=== PATIENT | male | born 1950 | race Caucasian/White ===

== ENCOUNTER → 2020-04-20 14:36 | Outpatient (CLI) | payer MEDICARE, OTHER, SELFPAY ==
[2020-04-20 17:00] LABS: COVID19 -Nasal RAPID Negative (Negative)
== END ==
PROVIDERS: PCP Family Medicine; Visit Provider Physician Assistant
DX: Z01.812 Encounter for preprocedural laboratory examination (principal); Z20.828 Contact with and (suspected) exposure to other viral communicable diseases
CPT/HCPCS: 87635; C9803

== ENCOUNTER 2020-04-22 10:04 | Day surgery (SDC) | payer MEDICARE, OTHER, SELFPAY ==
--- NOTE | 2020-04-22 | PATH_ITS ---
[facility] Accession Number: [id number] . 01 Material submitted: . PART A: esophagus - ESOPHAGEAL BIOPSIES PART B: colon - ASCENDING COLON POLYP PART C: colon - TRANSVERSE COLON POLYP PART D: rectum - RECTAL POLYP . 01 Clinical history: . A: R/O MOSCOSO'S B: POLYP X3 . 02 Diagnosis: A. Esophagus, Biopsies: Squamocolumnar junctional mucosa with specialized intestinal metaplasia, consistent with Moscoso's esophagus. Negative for dysplasia and malignancy. . B. Ascending Colon, Polyp x3, Biopsy: Tubular adenoma in three of four fragments. Benign lymphoid aggregate in one fragment. . C. Transverse Colon, Polyp, Biopsy: Tubular adenoma. . D. Rectum, Polyp, Biopsy: Hyperplastic polyp. [facility] 04/29/2020 1406 Local . 02 Electronically signed: . Stephanie Seay MD, Pathologist NPI- [id number] . 01 Gross description: . Part A: ESOPHAGEAL BIOPSIES: Received in formalin are 5 fragment(s) of bynum, soft tissue measuring 0.3 x 0.2 x 0.2 cm to 0.1 x 0.1 x 0.1 cm submitted entirely in 1 cassette(s) Part B: ASCENDING COLON POLYP: Received in formalin are 3 fragment(s) of bynum, soft tissue measuring 0.5 x 0.4 x 0.1 cm to 0.3 x 0.3 x 0.3 cm submitted entirely in 1 cassette(s) Part C: TRANSVERSE COLON POLYP: Received in formalin are 3 fragment(s) of bynum, soft tissue measuring 0.3 x 0.2 x 0.1 cm to 0.2 x 0.2 x 0.1 cm submitted entirely in 1 cassette(s) Part D: RECTAL POLYP: Received in formalin is 1 fragment(s) of bynum, soft tissue measuring 0.4 x 0.3 x 0.1 cm submitted entirely in 1 cassette(s) /QBJ 04/23/2020 0819 Local . 02 Microscopic: . A. An AB/PAS stain was performed to evaluate for intestinal metaplasia and is positive. The control stain showed appropriate reactivity. . 02 Pathologist provided ICD-10: K22.70 . 02 CPT . 133368, 925366, 505000, [id number], [id number] Performed at: 01 [facility] [address] [id number] [address] Persaud MD Phone: [phone] Performed at: 02 [facility] [address] [place] [id number] MD Stephanie Seay MD Phone: [phone]
[2020-04-22 10:32] VITALS: BP 116/75; PULSE 68; RESP 14; TEMP 36.6; O2SAT 98; BMI 26.6
[2020-04-22] MEDS: SODIUM CHLORIDE 0.9% 1,000 ML 70 ML IV (10:32)
[2020-04-22] MEDS: LIDOCAINE 4% SOLN 50 ML 20 ML TOP (11:40)
--- NOTE | 2020-04-22 11:40 | PM.HP.1 ---
History of Present Illness History of Present Illness Date Patient Seen: 04/22/20 Time Patient Seen: 11:30 Chief complaint: DX EGD/COLONOSCOPY Narrative: Patient is a very pleasant 69-year-old male who presented for EGD and colonoscopy. Was last evaluated last week for history of possible Scanlon's esophagus, though we do not have the pathology available for review, and personal history colon polyps. Has been 5 years since his last colonoscopy. Patient History Medical History Abn find-abdominal area Asthma Difficulty hearing Esophageal dysphagia GERD (gastroesophageal reflux disease) History of colon polyps Hyperlipidemia Neck pain Ringing in ears Weight loss Surgical History History of appendectomy History of colonoscopy History of esophagogastroduodenoscopy (EGD) History of hernia repair Family & Social History Social History: household members spouse Tobacco & Substance use: Smoking Status Former smoker alcohol intake current alcohol intake frequency 0-2 drinks per day Substance Use Type does not use Meds Home Medications and Allergies Home Medications Medication Instructions Recorded Confirmed Type aspirin 81 mg PO DAILY 04/22/20 04/22/20 History cholecalciferol (vitamin D3) 50 mcg PO DAILY 04/22/20 04/22/20 History [Vitamin D3] multivitamin 1 tab PO DAILY 04/22/20 04/22/20 History omeprazole 20 mg PO DAILY 04/22/20 04/22/20 History simvastatin 10 mg PO DAILY 04/22/20 04/22/20 History turmeric root extract 1,500 mg PO DAILY 04/22/20 04/22/20 History valacyclovir 1,000 mg PO DAILY 04/22/20 04/22/20 History vitamin F14-vjuza acid 1 tab PO DAILY 04/22/20 04/22/20 History Allergies Allergy/AdvReac Type Severity Reaction Status Date / Time No Known Drug Allergies Allergy Verified 04/22/20 09:56 Review of Systems Review of Systems ROS: Yes All systems reviewed with the patient and are negative except as otherwise documented Exam Vital Signs (past 8 hours): - 04/22/20 10:32 Temperature 97.8 F Pulse Rate 68 Respiratory Rate 14 Blood Pressure 116/75 Pulse Oximetry 98 Oxygen Delivery Method Room Air Const General: cooperative, healthy appearing, comfortable, well developed and well groomed Nutritional Appearance: average body habitus Orientation: alert, awake and oriented x3 HENMT Head: normocephalic and atraumatic Cardio Rate: regular rate Rhythm: regular rhythm Heart Sounds: S1 normal and S2 normal GI Palpation: soft Auscultation: normal bowel sounds Extrem Right lower extremity: no edema Left lower extremity: no edema Assessment & Plan Assessment & Plan narrative: 1. Heartburn, personal history of possible Scanlon's esophagus 2. History of colon polyps EGD and colonoscopy today, further recommendations to follow
[2020-04-22] MEDS: MIDAZOLAM 5 MG/5 ML VIAL IV (11:48)
[2020-04-22] MEDS: fentaNYL 250 MCG/5 ML INJ IV (11:58)
--- NOTE | 2020-04-22 12:10 | P.OP.ENDO_ITS ---
Operative Date/Time/Diagnoses Date of procedure: 04/22/20 Time of procedure: 11:43 Procedure Notes Procedure in detail: Surgeon: Missy Tobin DO Procedure: Esophagogastroduodenoscopy with biopsy and colonoscopy with polypectomy Preoperative diagnosis: 1. Heartburn, possible history of Scanlon's esophagus 2. Personal history of colon polyps Postoperative diagnosis: 1. LA-a esophagitis, biopsy rule out Scanlon's esophagus 2. Three ascending colon polyps 2-3 mm 3. Transverse colon polyp 3 mm 4. Rectal polyp 2 mm 5. Scattered sigmoid and descending colon diverticulosis 6. Grade 1 internal hemorrhoids Medications: Conscious sedation using a total of 5 mg IV of Midazolam and 150 mcg IV of Fentanyl (total for both procedures) Preanesthesia Assessment An H and P was performed/updated and the Px?s ASA class is 2. The procedure was discussed in detail with the patient. The potential risks and complications including infection, bleeding, missed lesions, perforation, need for surgery in case of perforation, prolonged hospital stay, and were explained. A brief question and answer period was allotted and once all questions were answered, informed consent was obtained. The patient was brought back to the procedure room and placed on standard monitoring. The patient?s vital signs were monitored continuously throughout the entire procedure. Prior to starting, a timeout was performed to confirm the patient?s identity, allergies, medications, and procedure. Procedure in detail The patient was placed in left lateral decubitus position and a bite block was inserted. The tip of the upper endoscope was placed into the mouth and advanced without difficulty under direct visualization into the esophagus. Esophagus: LA-A esophagitis, biopsied to rule out Scanlon's esophagus at the GE junction Stomach: Normal appearing gastric mucosa Normal appearing stomach on retroflexion Duodenum: Normal-appearing duodenal mucosa After the upper endoscopy, preparations were made for the colonoscopy. Once adequate sedation was obtained a CHARLES was performed. The digital rectal examination did not reveal any palpable lesions. The tip of the colonoscope was placed in the anal canal and advanced without difficulty all the way to the ce cum which was identified by the appendiceal orifice and the ileocecal valve. Three polyps were found in the ascending colon measuring 2-3 mm in size and removed with Jumbo forceps One 3 mm, found in the transverse colon and removed with Jumbo forceps One 2 mm polyp found in the rectum and removed with Jumbo forceps Scattered diverticulosis in the sigmoid and descending colon Grade 1 internal hemorrhoids noted on retroflexion The patient tolerated the procedure well and will be brought back to the recovery area to be discharged once criteria are met. The prep was judged to be good/excellent and adequate to identify polyps less than 5 mm. The withdrawal time was 9 min. The total physician intraservice time was 26min. Complications There were no complications and estimated blood loss was minimal. Recommendations Resume previous diet Continue outpatient medications Follow-up pathology results Repeat colonoscopy will be determined after pathology results are reviewed Follow-up at our office as needed An emergency contact number was given to the patient for any complications related to the procedure
[2020-04-22 12:15] VITALS: BP 108/66; PULSE 66; RESP 15; TEMP 36.3; O2SAT 96
[2020-04-22 12:20] VITALS: BP 100/64; PULSE 64; RESP 11; TEMP 36.3; O2SAT 94
[2020-04-22 12:25] VITALS: BP 98/65; PULSE 71; RESP 15; TEMP 36.6; O2SAT 96
[2020-04-22 12:30] VITALS: BP 118/77; PULSE 65; RESP 15; TEMP 36.1; O2SAT 96
[2020-04-22 12:41] VITALS: BP 112/76; PULSE 67; RESP 14; TEMP 36.3; O2SAT 96
== END 2020-04-22 12:50 | disposition home or self-care (01) ==
PROVIDERS: PCP Family Medicine; Referring Provider Student in an Organized Health Care Education/Training Program; Visit Provider Student in an Organized Health Care Education/Training Program
PROC: 0DJ08ZZ Inspection of Upper Intestinal Tract, Via Natural or Artificial Opening Endoscopic (ICD-10-PCS; CPT 43235; principal; 2020-04-22 11:00)
PROC: 0DJD8ZZ Inspection of Lower Intestinal Tract, Via Natural or Artificial Opening Endoscopic (ICD-10-PCS; CPT 45378; 2020-04-22 11:00)
DX: Z12.11 Encounter for screening for malignant neoplasm of colon (principal); Z86.010 Personal history of colon polyps; K21.00 Gastro-esophageal reflux disease with esophagitis, without bleeding; K57.30 Diverticulosis of large intestine without perforation or abscess without bleeding; K64.0 First degree hemorrhoids; D12.2 Benign neoplasm of ascending colon; D12.3 Benign neoplasm of transverse colon
CPT/HCPCS: 45380; 43239; J2250; J3010

== ENCOUNTER → 2020-12-31 19:08 | Outpatient (CLI) | payer MEDICARE, OTHER, SELFPAY ==
--- NOTE | 2020-12-31 19:11 | DI.MRI.S_ITS ---
PROCEDURE: MR CERVICAL SPINE WO CON INDICATIONS: Pain in thoracic spine TECHNIQUE: Noncontrast sagittal T1 spin echo and T2 fast spin echo, sagittal STIR, foraminal oblique sagittal T2 fast spin echo, and axial gradient echo or T2 fast spin echo through the cervical spine. COMPARISON: None. FINDINGS: Image quality: Excellent. Alignment and Curvature: Straightening of the normal lordotic curvature. Grade 1 retrolisthesis of C3 on C4, and C5 on C6, C6 on C7. Bone Marrow: No acute fracture. Multilevel degenerative endplate sclerosis and spurring. Diffuse facet arthropathy. Few scattered vertebral body hemangiomas with T1/T2 hyperintense appearance. Spinal Cord: Visualized spinal cord has normal size and signal. No cerebellar tonsillar herniation. Paraspinous Soft Tissues: No paravertebral masses. Prevertebral soft tissues are normal in thickness. C2-C3: Normal appearance. C3-C4: Asymmetric right-sided posterior disc osteophyte complex, with mild canal narrowing. There is effacement of the right anterior thecal sac. Severe right foraminal stenosis with nerve root compression. Mild left foraminal narrowing. C4-C5: Minimal canal narrowing. Moderate right foraminal stenosis. Mild left foraminal narrowing. C5-C6: Mild canal stenosis, with effacement of the anterior thecal sac. Severe bilateral foraminal stenoses with nerve root compression. C6-C7: Mild canal narrowing. Severe bilateral foraminal stenoses with nerve root compression. C7-T1: No canal or right foraminal stenosis. Mild to moderate left foraminal narrowing. IMPRESSION: Diffuse cervical spondylosis and facet arthropathy. Multilevel spondylolisthesis as above. Severe bilateral foraminal stenoses at C5-C6 and C6-C7. Severe right foraminal stenosis at C3-C4. Dictated by: Roberto Arauz M.D. on 01/01/2021 at 9:31 Approved by: Roberto Arauz M.D. on 01/01/2021 at 9:38
--- NOTE | 2020-12-31 19:11 | DI.MRI.S_ITS ---
PROCEDURE: MR THORACIC SPINE WO CON INDICATIONS: Pain in thoracic spine TECHNIQUE: Noncontrast sagittal T1 spine echo and T2 fast spin echo, sagittal STIR, axial T1 and T2 fast spin echo through the thoracic spine. COMPARISON: None. FINDINGS: Image quality: Excellent. Alignment and Curvature: There is normal bony alignment. Bone Marrow: Marrow is of normal overall signal. No acute vertebral body compression fractures. Spinal Cord: Visualized spinal cord is normal in size and signal. There is ovoid T2 hyperintense T1 hypointense lesion measuring 1.9 x 0.9 cm on sagittal pulse sequences, and 0.8 x 1.4 cm on axial pulse sequences. Margins are clearly defined. There is effacement of the adjacent posterior thecal sac in this is seen at the level of T6. Paraspinous Soft Tissues: Left parapelvic cysts, technically indeterminate. Miscellaneous: There is mild canal narrowing at the T6 level. Elsewhere on axial images, central canal and foramina appear widely patent at all scanned levels. IMPRESSION: Ovoid posterior epidural T2 hyperintense lesion at the T6 level. Unclear if this reflects cystic or T2 hyperintense solid lesion. While the exact clinical significance of this finding is unknown, cannot exclude neoplasm at this time and recommend further evaluation with dedicated contrast enhanced MRI. Mild canal narrowing at this level. No definite associated foraminal stenosis. Dictated by: Roberto Arauz M.D. on 01/01/2021 at 9:40 Approved by: Roberto Arauz M.D. on 01/01/2021 at 9:53
== END ==
PROVIDERS: PCP Family Medicine; Referring Provider Family Medicine; Visit Provider Family Medicine
DX: R20.1 Hypoesthesia of skin (principal); M54.6 Pain in thoracic spine; M54.9 Dorsalgia, unspecified; M47.812 Spondylosis without myelopathy or radiculopathy, cervical region; M48.02 Spinal stenosis, cervical region; M43.12 Spondylolisthesis, cervical region; G95.9 Disease of spinal cord, unspecified
CPT/HCPCS: 72141; 72146

== ENCOUNTER → 2021-01-28 11:01 | Outpatient (CLI) | payer MEDICARE, OTHER, SELFPAY ==
--- NOTE | 2021-01-28 | DI.MRI.S_ITS ---
PROCEDURE: MR THORACIC SPINE WO/W CON INDICATIONS: Abnormal findings on diagnostic imaging TECHNIQUE: Noncontrast sagittal T1 spin echo and T2 fast spin echo, sagittal STIR, axial T1 and T2 fast spin echo through the thoracic spine. After the administration of contrast, axial and sagittal T1 spin echo with fat saturation through the thoracic spine. COMPARISON: [facility], MR, MR CERVICAL SPINE WO CON, 12/31/2020, 19:51. [facility], MR, MR THORACIC SPINE WO CON, 12/31/2020, 20:14. FINDINGS: Image quality: Diagnostic, with note made of motion artifact. Alignment and curvature: There is normal bony alignment. Marrow: Marrow is of normal overall signal. No acute vertebral body compression fractures. Spinal cord: There is again seen an intrathecal, extradural T2 hyperintense ovoid mass posteriorly at the T6 level. This mass measures 2 x 0.9 x 1.4 cm. On the postcontrast imaging, this lesion demonstrates no significant enhancement. There is no significant perceptible enhancement seen involving the margins of this cyst as well. There is no significant mass effect seen upon the spinal cord from posteriorly at this level. Visualized spinal cord is of normal signal and size, without abnormal enhancement. Paraspinous soft tissues: No paravertebral masses or abnormal enhancement. Miscellaneous: Mild degenerative changes are seen, without a significant level of neural foraminal or central canal narrowing. IMPRESSION: A stable nonenhancing cyst can be seen posteriorly at the T6 level, which is intrathecal an extradural. Given the fact that this lesion does not enhance, this is felt most likely to be related to a benign, incidental cyst. Dictated by: Michele Freeman M.D. on 01/28/2021 at 11:44 Approved by: Michele Freeman M.D. on 01/28/2021 at 11:49
== END ==
PROVIDERS: PCP Family Medicine; Referring Provider Family Medicine; Visit Provider Family Medicine
DX: R93.89 Abnormal findings on diagnostic imaging of other specified body structures (principal)
CPT/HCPCS: 72157

== ENCOUNTER → 2021-11-25 10:13 | Outpatient (CLI) | payer MEDICARE, OTHER, SELFPAY ==
[2021-11-25 10:51] LABS: COVID19 -Nasal RAPID Negative (Negative)
== END ==
PROVIDERS: PCP Family Medicine; Visit Provider Surgery
DX: Z20.822 Contact with and (suspected) exposure to COVID-19 (principal); Z01.812 Encounter for preprocedural laboratory examination
CPT/HCPCS: 87635; C9803

== ENCOUNTER 2021-11-26 06:33 | Day surgery (SDC) | payer MEDICARE, OTHER, SELFPAY ==
[2021-11-22 12:23] VITALS: BMI 26.6
[2021-11-26] VITALS (8 sets, daily range): BP systolic 99–142; BP diastolic 62–97; PULSE 73–86; RESP 13–31; TEMP 36.5–36.9; O2SAT 97–99; BMI 26.6
[2021-11-26] MEDS: LACTATED RINGERS 1,000 ML 100 ML IV (07:14)
--- NOTE | 2021-11-26 07:40 | PM.PREOP ---
Pre-operative Note Interval Note History & Physical reviewed/Exam performed by Physician: Yes Changes to H&P: No
[2021-11-26] MEDS: CEFAZOLIN 2 GM/20 ML SYRINGE IV (08:01)
--- NOTE | 2021-11-26 08:10 | SUR.OPER ---
Supine on padded OR bed, head on pillow, arms secured on padded arm boards at <90 degrees abduction, gel pad supporting right elbow, rolled towels to support bilateral wrists, legs uncrossed, safety belt at thigh, gel pad under bilateral heels.
[2021-11-26] MEDS: LIDOCAINE 1% 20 ML INJ (09:00)
[2021-11-26] MEDS: OXYCODONE IR 5 MG TABLET PO (09:47)
--- NOTE | 2021-12-01 17:07 | P.OP_ITS ---
Operative Date/Time/Diagnoses Date of procedure: 12/01/21 Time of procedure: 17:07 Pre-op diagnosis: Recurrent right inguinal hernia Post-op diagnosis: same Procedure & Clinicians Procedure: Open repair recurrent right inguinal hernia with mesh Same procedure as scheduled: Yes Indications: 71-year-old male previous childhood inguinal hernia repair with a recurrence Surgeon: Hudson Mike Yes if Unassisted: Yes Anesthesia Type: General Operative Notes Findings: Indirect hernia defect. No floor defect Specimen(s): none sent Estimated Blood Loss (mL): 10 Procedure in detail: The patient was placed supine on the table and bilateral lower extremity compression devices were applied. Anesthesia was induced they were intubated with an LMA and received Ancef. A time-out was performed. They were prepped and draped in sterile fashion. The right external inguinal ring and the anterior superior iliac crest were identified and marked. 1 finger breath above the inguinal ligament the skin was infiltrated with 0.25% bupivacaine. The skin incision was made here and the subcutaneous tissues were divided with electrocautery exposing the external oblique aponeurosis which was then opened along the direction of its fibers. There was scarring within the inguinal canal consistent with a prior repair. No mesh. Using blunt dissection the internal oblique aporneurosis was from the external oblique upper leaflet. Using a kittner the cord was carefully dissected away from the inguinal canal adjacent to the pubic tubercle. The cord including the vas deferens, testicular bloody supply, ilioguinal and genital nerve were encircled with a Radha drain. There was no evidence of a direct floor defect. The cremasteric fibers surrounding the cord were divided using electrocautery adjacent to the internal ring.. The vas deferens and the testicular vessels were preserved and protected. There was a moderate-sized indirect hernia on the anterior medial aspect of the cord which was skeletonized away from the vas deferens and testicular blood supply. The indirect hernia was skeletonized back to the internal ring and reduced spontaneously into the abdomen. I selected a 7x 15 cm lightweight Pro Loop hernia mesh. The inferior medial aspect of the mesh was anchored to inser tion of the rectus muscle to the pubic tubercle such that there was approximately 2 cm of tubercle overlap with Ethibond and then was run continuously along the inferior edge of the mesh to the shelving edge of the inguinal ligament. Interrupted 3 0 Vicryl suture was used to anchor the superior aspect of the mesh to the conjoined tendon in several places. The tails were then reapproximated loosely around the spermatic cord. The tails of the mesh were then tucked under the external oblique aponeurosis. The repair was checked for hemostasis. The wound was irrigated with sterile saline. The external oblique aponeurosis was reapproximated in a running fashion using 3 0 Vicryl. The subcutaneous tissues were reapproximated with 3 0 Vicryl skin closed with 4 0 Monocryl followed by the application of Dermabond. At the end of the operation I ensured that both testicles were within the scrotum. The sponge instrument count at the end operation was correct. The patient emerged from anesthesia was extubated and transferred to the postoperative care unit in stable condition. A total of 30 ml of of 0.25% bupivicaine was used to infiltrate the skin. Complications: none Post-operative Condition: stable Disposition: same day surgery
== END 2021-11-26 10:18 | disposition home or self-care (01) ==
PROVIDERS: PCP Family Medicine; Referring Provider Surgery; Visit Provider Surgery
PROC: (CPT 49520; principal; 2021-11-26 07:45)
DX: K40.91 Unilateral inguinal hernia, without obstruction or gangrene, recurrent (principal)
CPT/HCPCS: 49520; J0690; J1100; J1885; J2250; J2405; J2704; J3010

== ENCOUNTER → 2022-10-30 12:09 | Outpatient (CLI) | payer MEDICARE, OTHER, SELFPAY ==
--- NOTE | 2022-10-30 | DI.MRI.S_ITS ---
PROCEDURE: MR WRIST LT WO CON INDICATIONS: Primary osteoarthritis, left wrist TECHNIQUE: Noncontrast coronal proton density fast spin echo and T2 fast spin echo with fat saturation; coronal 3-D gradient echo, axial T1 spin echo and T2 fast spin echo with fat saturation, sagittal T1 spin echo through the wrist. COMPARISON: [facility] Outside Film, CR, XR WRIST 3+ VIEWS LEFT, 10/10/2022, 9:23. FINDINGS: Image quality: Excellent. Bones and cartilage: The carpal bones are normally aligned. No bone marrow contusions or fractures. No evidence for avascular necrosis. Full-thickness cartilage loss is seen at the triscaphe joint with subchondral cystic changes and edema. There are moderate degenerative changes at the 1st carpometacarpal joint. Mild partial-thickness cartilage thinning and irregularity at the radiocarpal articulations. Carpal ligaments: The scapholunate and lunotriquetral ligaments appear intact. On sagittal images, the pisohamate ligament appears intact. Triangular fibrocartilage complex: There is focal full-thickness degenerative perforation of the central triangular fibrocartilage disc. Tendons and soft tissues: The carpal tunnel structures appear normal, including the median nerve. The ulnar nerve appears normal within Guyon's canal. All six extensor tendon compartments demonstrate normal morphology, without pathologic tendon sheath fluid. No soft tissue ganglion cysts. Ganglion cyst is seen at the volar radial aspect of the wrist at the level of the distal scaphoid measuring 13 x 5 x 3 mm. There is mild adjacent subcutaneous soft tissue edema. IMPRESSION: 1. Full-thickness cartilage loss at the triscaphe joint with subchondral cystic changes and edema. Xdop-oi-ppnccpar degenerative changes at the 1st carpometacarpal joint and radiocarpal joint. 2. 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 3. Ganglion cyst at the volar radial aspect of the wrist measures up to 13 mm. Approved by: Braydon Gardiner M.D. on 10/31/2022 at 11:09
== END ==
PROVIDERS: PCP Family Medicine; Referring Provider Orthopaedic Surgery; Visit Provider Orthopaedic Surgery
DX: M19.032 Primary osteoarthritis, left wrist (principal); S63.502A Unspecified sprain of left wrist, initial encounter; M67.432 Ganglion, left wrist
CPT/HCPCS: 73221